=== PATIENT | male | born 1980 | race Caucasian/White ===

== ENCOUNTER 2020-11-25 05:11 | Inpatient (IN) | payer OTHER, MEDICAID ==
[~2020-11-25] VITALS: Ht 177.8 cm; Wt 82.6 kg
[2020-11-25] VITALS (25 sets, daily range): BP systolic 112–152; BP diastolic 60–103
[~2020-11-25 05:11] MED LIST: ATIVAN1 MG PO; HYDROCHLOROTH12.5 M1 PO; HYDROCODON-ACE1 EACH PO; NICOTINE TRANSD21 M1 TOP; NOHOMEMEDICATIONS; PRENATABS FA T1 EACH PO; SERAX30 MG PO; SLEEP AID50 MG/30 M; VITAMIN B-1100 M1 PO; WELLBUTRIN 100100 MG PO
[2020-11-25 05:39] LABS: ABSOLUTE BASOPHILS 0.1 thou/uL (0.0-0.2); ABSOLUTE EOSINOPHILS 0.1 thou/uL (0.0-0.7); ABSOLUTE LYMPHOCYTES 1.3 thou/uL (0.8-5.3); ABSOLUTE MONOCYTES 0.6 thou/uL (0.0-1.2); ABSOLUTE NEUTROPHILS 5.4 thou/uL (1.6-8.1); BASOPHILS 1.3 %; EOSINOPHILS 1.1 %; HEMATOCRIT 47.5 % (42.0-52.0); HEMOGLOBIN 16.4 gm/dL (14.0-18.0); LYMPHOCYTES 17.4 %; MCH 32.9 pg (26.0-34.0); MCHC 34.5 g/dL (28.0-37.0); MCV 95.3 fL (80.0-100.0); MONOCYTES 8.2 %; MPV 8.1 fl. (7.2-11.1); NUCLEATED RBCS 0 /100WBC; PLATELET COUNT* 176 thou/uL (150-400); RBC 4.98 mil/uL (4.50-6.00); WBC 7.5 thou/uL (4.0-11.0)
[2020-11-25 05:40] LABS: PCO2 VENOUS 31.2 mmHg (41.0-51.0); PO2 VENOUS 81.1 mmHg (35.0-45.0)
[2020-11-25 05:59] LABS: PROTIME 10.9 Seconds (9.20-11.50)
[2020-11-25 06:05] LABS: CALCIUM 10.4 mg/dL (8.5-10.1); CREATININE 1.6 mg/dL (0.6-1.3); POTASSIUM 3.3 mmol/L (3.5-5.1)
[2020-11-25 06:09] LABS: ALBUMIN 4.6 g/dL (3.4-5.0); MAGNESIUM 2.5 mg/dL (1.8-2.4); PHOSPHORUS* 3.2 mg/dL (2.5-4.9); TOTAL BILIRUBIN 1.7 mg/dL (<0.1-1.0); TOTAL PROTEIN 8.9 g/dL (6.4-8.2)
--- NOTE | 2020-11-25 08:40 | NUR ---
ADMITTED TO ICU FROM ER. PATIENT HAVING TREMORS AND FORGETFUL FOR DATE BUT OTHERWISE NO S/S ETOH W/D.
[2020-11-25] MEDS ORDERED: ZYRTEC10 M2 PO (10:37)
[2020-11-25] MEDS ORDERED: DIPHENHIST50 MG PO (10:37)
[2020-11-25] MEDS ORDERED: ACID REDUCER20 MG PO (10:47)
--- NOTE | 2020-11-25 11:07 | EKG ---
[place] [address] ELECTROCARDIOGRAM REPORT Name: SUJEY ESPINOSA Room: [address] ADM IN ..#: [id number] Admission: 11/25/20 Attend Phys: Kai Rico Discharge: Date of : 78 Date of Service: 11/25/20 0513 Report #: [id number] THIS REPORT FOR: //name// [facility] ED Test Date: 2020-11-25 Test Time: 05:13:01 Pat Name: SUJEY ESPINOSA Department: Room: [facility] Gender: M Cruise Guide: [place] : 1980 Requested By: Alia Gimenez Order Number: [id number] MD: Samm Chavez Measurements Intervals [place] Rate: 109 P: 63 FL: 128 QRS: 33 QRSD: 88 T: 44 QT: 355 QTc: 479 Interpretive Statements Sinus tachycardia Borderline prolonged QT interval Baseline wander in lead(s) II,III,aVF,V2,V3 Compared to ECG 12/16/2015 19:23:21 No significant changes Electronically Signed On 11-25-2020 11:07:03 CDT by Samm Chavez [email or web address] <ELECTRONICALLY SIGNED> By: Samm Chavez MD, FAC 11/25/20 1107 2 2 Samm Chavez MD, FAC /EPI
--- NOTE | 2020-11-25 15:10 | NUR ---
Spoke with patient at bedside and introduced the role of CM. Patient alert and oriented x4 but drowsy. Patient was admitted from home and currently lives in an apt with his SO and 2 children. Support system is his (Dana [phone]). Patient can return home at discharge. Patient independent with ADLs and does not use any assistive devices. Patient does not drive and does not work. Currently there is no transportation between him and his SO. Patient will need a cab voucher at dc. Patient does have a pcp but does not have that information with him. Will provide drug/alcohol resources and transportation resources at dc. Pt drinks 2 pints of vodka/day and is not interested in tx options. Plan is for patient to dc tomorrow with the above resources. No other needs anticipated at this time. CM to continue to follow for safe dc planning.
[2020-11-25 16:01] LABS: URINE BILIRUBIN NEGATIVE (Negative); URINE BLOOD NEGATIVE (Negative); URINE CLARITY CLEAR; URINE COLOR YELLOW; URINE GLUCOSE-RANDOM NEGATIVE (Negative); URINE KETONES NEGATIVE (Negative); URINE LEUKOCYTES-REFLEX NEGATIVE (Negative); URINE NITRITE-REFLEX NEGATIVE (Negative); URINE PROTEIN NEGATIVE (Negative); URINE SPECIFIC GRAVITY <= 1.005 (1.005-1.030)
[2020-11-25 16:09] LABS: AMP/METHAMP Negative (Negative); BARBITURATES Negative (Negative); BENZODIAZEPINES Negative (Negative); COCAINE Negative (Negative); METHADONE Negative (Negative); OPIATES Negative (Negative); PCP Negative (Negative); THC Negative (Negative)
--- NOTE | 2020-11-25 16:25 | NUR ---
REPORT GIVEN TO MADHAVI OBRIEN
[2020-11-26] VITALS (21 sets, daily range): BP systolic 118–152; BP diastolic 79–104
--- NOTE | 2020-11-26 03:55 | NUR ---
ASSUMED CARE AT 1900H, ON RA AND TOLERATED. CIWA OF 6. NO SEIZURE, NO HALLUCINATION AND NO PAIN. KEPT SAFE. NO DISTRESS. CONTINUE MONITORING AND TOWARDS GOALS.
[2020-11-26 04:48] LABS: HEMATOCRIT 44.3 % (42.0-52.0); MCH 32.9 pg (26.0-34.0); MCHC 33.9 g/dL (28.0-37.0); MPV 8.9 fl. (7.2-11.1); RBC 4.56 mil/uL (4.50-6.00); RDW-CV 13.6 % (10.5-14.5)
[2020-11-26 04:51] LABS: CALCIUM 9.5 mg/dL (8.5-10.1); CREATININE 0.8 mg/dL (0.6-1.3); MAGNESIUM 2.2 mg/dL (1.8-2.4); PHOSPHORUS* 2.7 mg/dL (2.5-4.9); POTASSIUM 3.6 mmol/L (3.5-5.1)
--- NOTE | 2020-11-26 08:54 | NUR ---
0781 ASSUMED CARE OF PATIENT. PLEASE SEE DOCUMENTED ASSESSMENT AND CIWA CHARTING. PT NOT REQUIRING BENZODIAZEPINES AT THIS TIMJE.
--- NOTE | 2020-11-26 08:55 | NUR ---
DR JAIME HERE TO SEE PATIENT. WILL FINISH THIS BAG OF IV VITAMINS AND BECOME TELE STATUS
--- NOTE | 2020-11-26 17:18 | NUR ---
PT PROGRESSING TOWARDS GOALS. CIWA CHARTED. NOW TELEMETRY STATUS IN THE ICU. PT GIVEN INFORMATION ON ANTABUSE PER HIS REQUEST. OFF OF IVF AND APPETITE IS GOOD. PT HAS BEEN IN CONTACT WITH SPOUSE ON HIS PHONE. PLAN IS FOR POSSIBLE DISCHARGE TOMORROW.
[2020-11-27 03:23] VITALS: BP 150/93
[2020-11-27 04:11] LABS: CREATININE 0.8 mg/dL (0.6-1.3); PHOSPHORUS* 3.5 mg/dL (2.5-4.9); POTASSIUM 3.7 mmol/L (3.5-5.1)
--- NOTE | 2020-11-27 04:32 | NUR ---
ASSUMED CARE AT 1910H, ON RA AND TOLERATED. STILL WITH TREMORS. NO DISTRESS. PT THINKS THAT HE CAN GO HOME HYDROBLASTER. HE REMOVED HIS IV LINE AND FIXED HIS BELONGINGS. EXPLAINED TO HIM THAT THE DOCTOR NEED TO SEE HIM FIRST AND ORDER HOME MEDS, PT UNDERSTOOD. PT WAS ANXIOUS AND TREMORS INCREASED, ATIVAN GIVEN. HE WANTED TO HAVE ANTABUSE INCLUDED IN HIS HOME MEDS. CONTINUE MONITORING AND TOWARDS GOALS.
--- NOTE | 2020-11-27 08:34 | NUR ---
THIS RN AND ONLY OTHER RN JUAN IN CONTACT ROOMS ASSESSING PTS WHEN RT INFORMED US THAT THIS PT WAS DRESSED AND LEAVING THE ICU. THIS RN WAS ABLE TO TALK PT IN TO GIVING US A FEW MINUTES TO CONTACT THE DR TO DISCUSS COMPLETING HIS PLANNED DISCHARGE MORE QUICKLY. LAB DIRECTOR ALSO INFORMED OF SITUATION. PT CALM AND COOPERATIVE. DR JAIME ARRIVED VERY QUICKLY AND IS CURRENTLY WORKING ON PTS DISCHARGE.
[2020-11-27 08:59] VITALS: BP 130/81
--- NOTE | 2020-11-27 10:25 | NUR ---
PT DISCHARED PER ORDERS AT THIS TIME VIA CAB. NO S/S DISTRESS. PT IN GOOD SPIRITS AND THANKED THIS RN FOR WORKING WITH HIM ON A TIMELY DISCHARGE. ALL BELONGINGS WITH PT.
== END 2020-11-27 10:25 | disposition home or self-care (01) | DRG 896 ==
LOC: M.ERS 05:11 → M.ICU 06:01 → M.TBA-ER 06:01 → M.ICU 08:30
PROVIDERS: Family Medicine; Personal Emergency Response Attendant; ADMIT Internal Medicine; ATTEND Internal Medicine
DX: F10.231 Alcohol dependence with withdrawal delirium (principal); N17.0 Acute kidney failure with tubular necrosis; E87.1 Hypo-osmolality and hyponatremia; Y90.9 Presence of alcohol in blood, level not specified; F10.229 Alcohol dependence with intoxication, unspecified; E87.6 Hypokalemia; E83.52 Hypercalcemia; J45.909 Unspecified asthma, uncomplicated; Z20.822 Contact with and (suspected) exposure to COVID-19; Z79.899 Other long term (current) drug therapy